=== PATIENT | male | born 1995 | race Caucasian/White ===

== ENCOUNTER 2017-04-04 15:14 | Emergency (ER) | payer OTHER ==
[~2017-04-04] VITALS: Ht 177.8 cm; Wt 90.2 kg
[~2017-04-04 15:14] MED LIST: ADD/10 PO; ADD/5 PO; ALBUAER2 INH; FLOVENT; MOME50SP5; SNG10 PO; ZYRUNK
[2017-04-04 15:18] VITALS: TEMP 37.4
[2017-04-04] MEDS ORDERED: ONDANSETRON INJ 2 MG/ML 2 ML VIAL IV STA (15:22)
[2017-04-04] MEDS ORDERED: SODIUM CHLORIDE 0.9% 1000ML 2,000 ML IV STA (15:22)
[2017-04-04 15:33] VITALS: O2SAT 100
[2017-04-04 15:34] VITALS: Ht 177.8 cm; Wt 90.2 kg
--- NOTE | 2017-04-04 15:49 | DIAGNOSTIC IMAGING REPORT ---
CHEST ONE VIEW PORTABLE CLINICAL HISTORY: EVALUATE WEAKNESS COMPARISON STUDY: 06/29/2007 FINDINGS: Subtle interstitial infiltrate left base. Lungs otherwise appear clear. Diaphragms are smooth. IMPRESSION: Interstitial infiltrate left base The above report was generated using voice recognition software. It may contain grammatical, syntax or spelling errors. Electronically signed by: Andriy Lopez M.D. 04/04/2017 3:47 PM Dictated Date/Time: 04/04/2017 3:47 PM
[2017-04-04 15:50] LABS: BASO % 0.2 %; BASO ABS # 0.03 K/uL (0-0.2); EOS % 0.1 %; EOS ABS # 0.02 K/uL (0-0.5); HEMATOCRIT 42.5 % (42-52); HEMOGLOBIN 14.7 g/dL (14.0-18.0); IG# 0.05 K/uL (0.00-0.02); LYMPH ABS # 1.25 K/uL (1.2-3.4); MEAN CELL VOLUME 85.9 fL (80-100); MEAN CORPUSCULAR HEMOGLOBIN 29.7 pg (25-34); MEAN CORPUSCULAR HGB CONC 34.6 g/dl (32-36); MEAN PLATELET VOLUME 9.3 fL (7.4-10.4); MONO % 8.6 %; MONO ABS # 1.54 K/uL (0.11-0.59); NEUT % 83.8 %; NEUT ABS # 15.02 K/uL (1.4-6.5); PLATELET COUNT 244 K/uL (130-400); RED CELL DISTRIBUTION WIDTH CV 13.1 % (11.5-14.5); RED CELL DISTRIBUTION WIDTH SD 40.8 fL (36.4-46.3); WHITE BLOOD COUNT 17.91 K/uL (4.8-10.8)
[2017-04-04 16:02] LABS: INR 1.1 (0.9-1.1); PTT PATIENT 27.9 SECONDS (21.0-31.0)
[2017-04-04 16:06] LABS: ALBUMIN 4.2 gm/dl (3.4-5.0); POTASSIUM 3.6 mmol/L (3.5-5.1)
[2017-04-04 16:17] LABS: TOTAL PROTEIN 8.2 gm/dl (6.4-8.2)
[2017-04-04 16:28] LABS: INFLUENZA B ANTIGEN Neg for Influ B (NEG)
[2017-04-04] MEDS ORDERED: KETOROLAC TROMETHAMINE 30 MG/ML VIAL IV STA (17:11)
[2017-04-04] MEDS ORDERED: DOXYCYCLINE HYCLATE 100 MG CAP PO ONE (17:15)
[2017-04-04] MEDS ORDERED: SODIUM CHLORIDE 0.9% 1000ML 1,000 ML IV STA (17:19)
[2017-04-04] MEDS ORDERED: DOXY100C PO (17:45)
[2017-04-04 18:00] VITALS: BP 117/56; PULSE 117; O2SAT 98
--- NOTE | 2017-04-04 20:21 | EMERGENCY ROOM VISIT NOTE ---
History Report prepared by Artie: Chandler Nice Under the Supervision of: Dr. Ted Garcia D.O. First contact with patient: 15:16 Stated Complaint: DIZZINESS, LIGHTHEADED, VISUAL ISSUES History of Present Illness The patient is a 21 year old male who presents to the Emergency Room with complaints of episodic dizziness at 8 am this morning. The patient notes that he has not been feeling well for one week. He states that he developed a sore throat this morning. 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 He notes nausea, sweating, and dry heaving. He reports that his vision became blurry, thought he was able to see enough to walk and sit down. He states that he did not pass out. He notes that he has had similar vision changes when he quickly stands up. He notes a tingling sensation in his right arm when this occurred. He doesn't want to a cough as well. It has been nonproductive. He notes a runny nose. He states that he wasn't able to eat lunch and has nothing to eat at all today. Patient denies diabetes, hypertension, hyperlipidemia, CAD , family history of sudden at a young age, and smoking. Patient denies swelling of calves, recent trips, history of immobilization or recent surgery, prior history of DVT, hemoptysis, history of malignancy, or history of smoking. Pt denies headache, cough, chest pain, shortness of breath, diarrhea, pain with urination, and melena. Source of History: patient Onset: 8 am this morning Position: other (global ) Quality: other (dizziness) Timing: other (episodic ) Associated Symptoms: + sorethroat, No headache, No cough, No chest pain, No SOB, No melena, No diarrhea, No urinary symptoms (pain with urination) Note: He notes dizziness, upset stomach, sweating, runny nose, and dry heaving. He notes blurry vision. He notes tingling sensation in right arm. Review of Systems See HPI for pertinent positives & negatives. A total of 10 systems reviewed and were otherwise negative. Past Medical & Surgical Medical Problems: (1) Pneumonia Family History No pertinent family history Social History Alcohol Use: none Drug Use: none Marital Status: single Occupation Status: unemployed Current/Historical Medications Scheduled Doxycycline Hyclate (Vibramycin), 100 MG PO BID Allergies Coded Allergies: Amoxicillin (Unverified Allergy, Unknown, ., 04/04/17) Erythromycin (Unverified Allergy, Unknown, ., 04/04/17) Physical Exam Vital Signs Date Time Temp Pulse Resp B/P (MAP) Pulse Ox O2 Delivery O2 Flow Rate FiO2 04/04/17 18:00 117 18 117/56 98 Room Air 04/04/17 17:01 115 18 95/57 98 Room Air 04/04/17 16:38 110 04/04/17 16:17 108 16 130/78 99 Room Air 04/04/17 15:54 106 20 129/68 115 125/76 133 137/81 04/04/17 15:33 100 Room Air 04/04/17 15:18 37.4 122 20 141/85 100 Room Air Physical Exam GENERAL: Sitting up in bed, alert, disheveled-appearing, well nourished, EYE EXAM: normal conjunctiva. PERRL and EOM's intact. OROPHARYNX: no exudate, no erythema, lips, buccal mucosa, and tongue normal and mucous membranes are moist NECK: supple, no nuchal rigidity, no adenopathy, non-tender LUNGS: Clear to auscultation. Normal chest wall mechanics HEART: Tachycardic, no murmurs, S1 normal and S2 normal ABDOMEN: abdomen soft, non-tender, normo-active bowel sounds, no masses, no rebound or guarding. BACK: Back is symmetrical on inspection and there is no deformity, no midline tenderness, no CVA tenderness. SKIN: no rashes and no bruising UPPER EXTREMITIES: upper extremities are grossly normal. LOWER EXTREMITIES: No pitting edema. NEURO EXAM: Normal sensorium, cranial nerves II-XII intact, normal speech, no weakness of arms, no weakness of legs. No drift. Finger to nose intact. Gross sensation intact. Medical Decision & Procedures ER Provider Diagnostic Interpretation: Radiology results as stated below per my review and the radiologist's interpretation: CHEST ONE VIEW PORTABLE CLINICAL HISTORY: EVALUATE WEAKNESS COMPARISON STUDY: 06/29/2007 FINDINGS: Subtle interstitial infiltrate left base. Lungs otherwise appear clear. Diaphragms are smooth. IMPRESSION: Interstitial infiltrate left base The above report was generated using voice recognition software. It may contain grammatical, syntax or spelling errors. Electronically signed by: Andriy Lopez M.D. 04/04/2017 3:47 PM Dictated Date/Time: 04/04/2017 3:47 PM Laboratory Results 04/04/17 15:30 Red Blood Count 4.95, Mean Corpuscular Volume 85.9, Mean Corpuscular Hemoglobin 29.7, Mean Corpuscular Hemoglobin Concent 34.6, Mean Platelet Volume 9.3, Neutrophils (%) (Auto) 83.8, Lymphocytes (%) (Auto) 7.0, Monocytes (%) (Auto) 8.6, Eosinophils (%) (Auto) 0.1, Basophils (%) (Auto) 0.2, Neutrophils # (Auto) 15.02, Lymphocytes # (Auto) 1.25, Monocytes # (Auto) 1.54, Eosinophils # (Auto) 0.02, Basophils # (Auto) 0.03 04/04/17 15:30 Test 04/04/17 15:30 04/04/17 15:43 04/04/17 15:50 White Blood Count 17.91 K/uL (4.8-10.8) Red Blood Count 4.95 M/uL (4.7-6.1) Hemoglobin 14.7 g/dL (14.0-18.0) Hematocrit 42.5 % (42-52) Mean Corpuscular Volume 85.9 fL (80-100) Mean Corpuscular Hemoglobin 29.7 pg (25-34) Mean Corpuscular Hemoglobin Concent 34.6 g/dl (32-36) Platelet Count 244 K/uL (130-400) Mean Platelet Volume 9.3 fL (7.4-10.4) Neutrophils (%) (Auto) 83.8 % Lymphocytes (%) (Auto) 7.0 % Monocytes (%) (Auto) 8.6 % Eosinophils (%) (Auto) 0.1 % Basophils (%) (Auto) 0.2 % Neutrophils # (Auto) 15.02 K/uL (1.4-6.5) Lymphocytes # (Auto) 1.25 K/uL (1.2-3.4) Monocytes # (Auto) 1.54 K/uL (0.11-0.59) Eosinophils # (Auto) 0.02 K/uL (0-0.5) Basophils # (Auto) 0.03 K/uL (0-0.2) RDW Standard Deviation 40.8 fL (36.4-46.3) RDW Coefficient of Variation 13.1 % (11.5-14.5) Immature Granulocyte % (Auto) 0.3 % Immature Granulocyte # (Auto) 0.05 K/uL (0.00-0.02) Prothrombin Time 11.7 SECONDS (9.0-12.0) Prothromb Time International Ratio 1.1 (0.9-1.1) Activated Partial Thromboplast Time 27.9 SECONDS (21.0-31.0) Partial Thromboplastin Ratio 1.1 D-Dimer 270 ug/L FEU (0-500) Urine Color DK YELLOW Urine Appearance CLEAR (CLEAR) Urine pH 5.5 (4.5-7.5) Urine Specific [place] 1.034 (1.000-1.030) Urine Protein 1+ (NEG) Urine Glucose (UA) NEG (NEG) Urine Ketones 3+ (NEG) Urine Occult Blood NEG (NEG) Urine Nitrite NEG (NEG) Urine Bilirubin NEG (NEG) Urine Urobilinogen NEG (NEG) Urine Leukocyte Esterase NEG (NEG) Urine WBC (Auto) 1-5 /hpf (0-5) Urine RBC (Auto) 0-4 /hpf (0-4) Urine Hyaline Casts (Auto) 10-30 /lpf (0-5) Urine Epithelial Cells (Auto) >30 /lpf (0-5) Urine Bacteria (Auto) NEG (NEG) Anion Gap 10.0 mmol/L (3-11) Est Creatinine Clear Calc Drug Dose 132.0 ml/min Estimated GFR () 124.1 Estimated GFR (Non- 107.1 BUN/Creatinine Ratio 15.5 (10-20) Calcium Level 9.0 mg/dl (8.5-10.1) Total Bilirubin 0.8 mg/dl (0.2-1) Direct Bilirubin 0.2 mg/dl (0-0.2) Aspartate Amino Transf (AST/SGOT) 20 U/L (15-37) Alanine Aminotransferase (ALT/SGPT) 35 U/L (12-78) Alkaline Phosphatase 84 U/L (45-117) Troponin I < 0.015 ng/ml (0-0.045) Total Protein 8.2 gm/dl (6.4-8.2) Albumin 4.2 gm/dl (3.4-5.0) Lipase 71 U/L (73-393) Thyroid Stimulating Hormone (TSH) 0.501 uIu/ml (0.300-4.500) Bedside Glucose 88 mg/dl (70-99) Influenza Type A Antigen Neg for Influ A (NEG) Influenza Type B Antigen Neg for Influ B (NEG) Date/Time Source Procedure Growth Status 04/04/17 15:30 Throat Group A Streptococcus Screen - Final SPECIMEN NEGATIVE FOR GROUP A BETA ST... Complete 04/04/17 15:30 Group A Streptococcus Screen (VISHAL) - Final Group G Beta Strep Complete Laboratory results per my review. Medications Administered Medications (Trade) Dose Ordered Sig/Joyce Route Start Time Stop Time Status Last Admin Dose Admin Sodium Chloride 2,000 ml @ 999 mls/hr Q2H1M STAT IV 04/04/17 15:22 04/04/17 17:22 DC 04/04/17 15:22 999 MLS/HR Ondansetron HCl (Zofran Inj) 4 mg NOW STAT IV 04/04/17 15:22 04/04/17 15:25 DC 04/04/17 15:52 4 MG Ketorolac Tromethamine (Toradol Inj) 30 mg NOW STAT IV 04/04/17 17:11 04/04/17 17:13 DC 04/04/17 17:19 30 MG Doxycycline Hyclate (Vibramycin Cap) 100 mg ONE ONCE PO 04/04/17 17:15 04/04/17 17:17 DC 04/04/17 17:19 100 MG Sodium Chloride 1,000 ml @ 999 mls/hr Q1H1M STAT IV 04/04/17 17:19 04/04/17 18:19 DC 04/04/17 17:19 999 MLS/HR ECG Indication: other (dizziness ) Rate (beats per minute): 113 Rhythm: sinus tachycardia Findings: no ectopy, other (Normal axis. Normal intervals. ) ED Course ED COURSE: Vital signs were reviewed and showed tachycardic. The patients medical record was reviewed The above diagnostic studies were performed and reviewed. ED treatments and interventions as stated above. 1518: The patient was evaluated in room C7. A complete history and physical examination was performed. 1522: Ordered Zofran 4 mg IV and Sodium Chloride 2,000 ml @ 999 mls/hr IV 1654: I reassessed the patient at this time. He is resting comfortably. 1711: Ordered Toradol 30 mg IV 1715: Ordered Doxycycline Hyclate 100 mg PO 1719: Ordered Sodium Chloride 1,000 ml @ 999 mls/hr IV 1743: Upon reevaluation, I offered the patient admission, though he declined. I discussed my findings with the patient and he understands and agrees with the treatment plan. Based on the patients age, coexisting illnesses, exam and lab findings the decision to treat as an outpatient was made. The patient remained stable while under my care. The patient appeared well at the time of discharge. Medical Decision Differential Diagnosis includes but is not limited to dehydration, stroke, anemia, hypoglycemia, hyponatremia, hypernatremia, urinary tract infection, pneumonia, bronchitis, sepsis, gastroenteritis, additional abdominal pathology, metabolic abnormalities and infections. Patient is a 21-year-old male who presents to ER who has had a sore throat cough and runny nose for the past several days. Today he felt very flushed, nauseous and became extremely diaphoretic. He notes his vision almost went black. He did not pass out. He had several episodes of dry heaving. He denied any chest pain or shortness of breath with this. He was brought into the ER. Upon presentation extremity tachycardic. He is not febrile. Does have URI symptoms and CXR was obtained and shows a focal infiltrate. He has no headache or neck pain. Again no chest pain or shortness of breath to suggest PE or cardiac disease. EKG showed a sinus tachycardia. Troponin was negative. D-dimer was negative. I did offer admission as he is fairly persistently tachycardic and dropped his blood pressure once but he declined. Patient had no abdominal pain at all. His abdominal exam was completely benign. Patient was given a dose doxycycline. He was discharged with pneumonia and to follow- up with PCP as an outpatient. Discussed with Pt concerning signs and symptoms to watch out for. Pt was instructed to follow up with their PCP and discussed with the patient their option to return to the ED at anytime for persistent or worsening symptoms. The appropriate anticipatory guidance and out-patient management, including indications for return to the emergency department, were explained at length to the patient and understood. Medication Reconcilliation Current Medication List: was personally reviewed by me Blood Pressure Screening Patient's blood pressure: Elevated blood pressure Blood pressure disposition: Elevated BP felt to be situational Impression Primary Impression: Pneumonia Scribe Attestation The scribe's documentation has been prepared under my direction and personally reviewed by me in its entirety. I confirm that the note above accurately reflects all work, treatment, procedures, and medical decision making performed by me. Departure Information Dispostion Home / Self-Care Prescriptions Doxycycline Hyclate (VIBRAMYCIN) 100 Mg Cap 100 MG PO BID for 10 Days, CAP Prov: Ted Garcia, DO 04/04/17 Referrals No Doctor, Assigned (PCP) Forms HOME CARE DOCUMENTATION FORM, IMPORTANT VISIT INFORMATION Patient Instructions ED Pneumonia Adult, My [facility] Additional Instructions Please follow up with your primary care doctor with in the next 24 hours. Any worsening of your symptoms, please return to the ED immediately. This includes any fevers greater than 100.4, worsening pain, chest pain, shortness breath, persistent nausea, vomiting, unable to eat or drink, or any other concerning signs or symptoms from your standpoint. Please take Motrin or Tylenol as needed for pain or fevers. Please take antibiotics as prescribed. If anything worsens please return to the ER. Problem Qualifiers Primary Impression: Pneumonia Pneumonia type: due to unspecified organism Laterality: unspecified laterality Lung location: unspecified part of lung Qualified Codes: J18.9 - Pneumonia, unspecified organism
== END 2017-04-04 18:07 | disposition home or self-care (01) ==
LOC: EDBD 15:14 → C.EDC 15:15
DX: J18.9 Pneumonia, unspecified organism (principal); R42 Dizziness and giddiness